=== PATIENT | male | born 1945 | race Caucasian/White ===

== ENCOUNTER → 2021-06-28 | Outpatient (CLI) | payer MEDICARE ==
[2021-06-28 18:29] LABS: Basophils # (A) 0.03 X 10*3/uL (0.00-0.10); Basophils % (A) 0.7 %; Eosinophils % (A) 2.4 %; HCT 34.8 % (39.6-50.0); HGB 11.8 g/dL (13.0-17.0); Immature Grans, Automated 0.2 %; Lymphocytes # (A) 1.07 X 10*3/uL (0.90-5.00); Lymphocytes % (A) 25.3 %; MCH 33.1 pg (27.0-32.0); MCHC 33.9 g/dL (32.0-37.0); MCV 97.5 fL (80.0-97.0); Monocytes # (A) 0.41 X 10*3/uL (0.20-1.00); Monocytes % (A) 9.7 %; NRBC Per 100 WBC 0 /100 WBCS (0.0-0.0); Neutrophils # (A) 2.61 X 10*3/uL (1.80-7.70); Neutrophils % (A) 61.7 %; Platelet Count 177 X 10*3/uL (140-440); RBC 3.57 X 10*6/uL (4.40-5.60); RDW 13.1 % (11.5-14.5); WBC 4.23 X 10*3/uL (4.50-10.00)
[2021-06-28 18:34] LABS: Anion Gap 8.5 mmol/L (10.00-18.00); Carbon Dioxide 24.6 mmol/L (20.0-27.5); Potassium 4.5 mmol/L (3.5-5.5)
== END | disposition home or self-care (01) ==
LOC: LABPAT 13:28
PROVIDERS: ATTEND Orthopaedic Surgery
DX: Z01.812 Encounter for preprocedural laboratory examination (principal); M23.92 Unspecified internal derangement of left knee
CPT/HCPCS: 80051; 85025; 93005

== ENCOUNTER 2021-07-14 09:34 | Day surgery (SDC) | payer BC, MEDICARE ==
[2021-07-13 12:43] VITALS: BMI 28.1
--- NOTE | 2021-07-13 18:23 | HP ---
HISTORY AND PHYSICAL DATE OF SURGERY: 07/14/2021 Nick Grover is a 76-year-old patient seen with progressive left knee pain. We discussed options for treatment. He elected to proceed with left knee arthroscopy. Consent was obtained. PAST MEDICAL HISTORY: Noncontributory. PAST SURGICAL HISTORY: Knee arthroscopy, total hip arthroplasty, laminectomy. DAILY MEDICATIONS: Aleve. ALLERGIES: NONE. SOCIAL HISTORY: He denies tobacco use. PHYSICAL EVALUATION OF THE LEFT KNEE: His range of motion is negative 1 to 115. Mild effusion. Tenderness along the medial and lateral joint lines. Positive medial Jaycob's. Positive lateral Jaycob's. Ligaments stable. Hip rotation without pain. Distal neurovascular exam intact. Left knee radiographs revealed mild osteoarthritis. Left knee MRI revealed a medial meniscal tear, chronic ACL tear and Albert cyst. IMPRESSION: 1. Internal derangement of left knee with medial meniscal tear. 2. Left knee chronic ACL tear. PLAN: Left knee arthroscopy with partial medial meniscectomy and debridement. MMODL / IJN: [id number] /
[~2021-07-14 09:34] MED LIST: DEXAMETHASONE SOD PHOSPHATE 4 MG/ML 1 ML VIAL IV ONE; HYDROmorphone 0.5 MG/0.5 ML SYRINGE IVP PRN; LACTATED RINGERS 1,000 ML IV SCH; LIDOCAINE 1% (10MG/ML) FOR IV START INTRADERMA PRN; ONDANSETRON 4 MG/2 ML VIAL IVP ONE
[2021-07-14] MEDS ORDERED: LIDOCAINE 2% INJ 20 MG/ML (2 ML VIAL) ONE (11:18)
[2021-07-14] MEDS ORDERED: PROPOFOL 10 MG/ML 20 ML VIAL IV ONE (11:18)
[2021-07-14] MEDS ORDERED: fentaNYL (PF) 50 MCG/ML 2 ML AMP ONE (11:18)
[2021-07-14] MEDS ORDERED: MIDAZOLAM 2 MG/2 ML VIAL ONE (11:18)
[2021-07-14] MEDS ORDERED: BUPIVACAINE (PF) 0.25% 30 ML VIAL INTRAARTIC ONE ×2 (11:35→11:50)
--- NOTE | 2021-07-14 12:06 | P.OP ---
Date of Procedure: 07/14/21 Preoperative Diagnosis: Internal derangement left knee Postoperative Diagnosis: 1. Tear medial and lateral meniscus left knee 2. Reactive synovitis medial, lateral and suprapatellar compartments left knee Procedure(s) Performed: 1. Arthroscopic partial medial and lateral meniscectomy left knee 2. Arthroscopic partial synovectomy medial, lateral and suprapatellar compartments left knee Anesthesia: GETA, local Surgeon: Dre Calero Estimated Blood Loss (ml): 7 Pathology: none sent Condition: stable Disposition: PACU Indications for Procedure: 76-year-old patient seen with progressive left knee pain. After having treatment options discussed, he elected to proceed with arthroscopy. Operative Findings: see description of procedure Description of Procedure: Patient was taken to the operative suite. Patient underwent a general anesthetic by the department of anesthesia. Patient was given preoperative antibiotics. The left lower extremity was placed in a well-padded arthroscopic leg hernandes. The left leg was prepped and draped in the normal sterile orthopedic fashion. A lateral parapatellar and suprapatellar incision was made. Trochars were inserted. Arthroscopy was initiated. Suprapatellar pouch r evealed diffuse thick reactive synovitis. The patellofemoral joint appeared to articulate congruently. There was grade 2 chondromalacia of the patella without significant osteochondral tearing. The scope was guided into the medial gutter. No loose bodies or plica were identified. The scope was then guided into the medial compartment. A medial parapatellar incision was made. Trocar inserted followed by probe. There was a complex tear involving the posterior horn of the medial meniscus which did extend into the midbody area. There were grade 2 chondromalacia changes of the medial femoral condyle without significant osteochondral tearing. There was some thick reactive synovitis anteriorly. I performed a partial medial meniscectomy getting down to stable meniscal tissue. I performed a partial synovectomy decompressing the reactive synovitis. The residual meniscus was probed and was found to be stable. There was good decompression of the synovitis. Scope and probe were then guided into the intercondylar notch. The anterior cruciate ligament was absent. The posterior cruciate ligament was intact.. The scope and probe were then guided into lateral compartment. There was a radial tear involving the anterior horn lateral meniscus. There was some thick reactive synovitis anteriorly. I performed a partial lateral meniscectomy getting down to stable meniscal tissue. I performed a partial synovectomy decompressing the reactive synovitis anteriorly. The residual meniscus was stable. There was good decompression of the synovitis. The scope was in guided back into the suprapatellar compartment. I introduced a motorized shaver into the suprapatellar compartment. I debrided some piecemeal fragments of meniscus I encountered. I performed a partial synovectomy. Shaver was now removed. There was good decompression of the synovitis. Instruments were now removed from the joint. The joint was infiltrated with .25% Marcaine. Steri-Strips were applied to the portal sites. Sterile dressings were applied. The patient was placed into a TOMASZ hose. No tourniquet was utilized. The patient was awakened, transferred to a bed and taken to recovery stable satisfactory condition.
[2021-07-14 12:12] VITALS: TEMP 98
[2021-07-14] MEDS ORDERED: HYDROcodone/APAP 5-325MG 1 EACH TAB PO ONE (13:27)
[2021-07-14] MEDS ORDERED: HYDROcodone/APAP 5-325MG 1 EACH TAB ONE (13:28)
[2021-07-14 13:58] VITALS: BP 155/79; PULSE 50; RESP 18
== END 2021-07-14 14:25 | disposition home or self-care (01) ==
LOC: OR 09:34
PROVIDERS: ATTEND Orthopaedic Surgery
DX: S83.282A Other tear of lateral meniscus, current injury, left knee, initial encounter (principal); S83.512A Sprain of anterior cruciate ligament of left knee, initial encounter; M17.12 Unilateral primary osteoarthritis, left knee; M65.862 Other synovitis and tenosynovitis, left lower leg
CPT/HCPCS: 29880; J2250; J1100; J0690; J2405; J3010; J2704; J2001

== ENCOUNTER → 2023-11-22 | Outpatient (CLI) | payer MEDICARE ==
--- NOTE | 2023-11-22 13:32 | MR ---
EXAMINATION TYPE: MR cervical spine wo con DATE OF EXAM: 11/22/2023 COMPARISON: None HISTORY: 78-year-old male L5 4.12, cervical region radiculopathy, Emmett hand numbness TECHNIQUE: Multiplanar, multisequence images of the cervical spine were acquired without contrast. FINDINGS: No craniocervical junction abnormality, predental space widening, prevertebral soft tissue swelling. There is mild multilevel degenerative disc disease with desiccated and mildly bulging disks throughou t. More moderate degenerative disc disease with disc space narrowing at C4-C5. Additional ligamentum flavum thickening in the mid cervical spine. No suspicious bone marrow placement. Alignment is maintained. Scattered moderate to advanced facet and uncovertebral joint arthropathy throughout. The changes result in mild to moderate bile canal narrowing at C3-C4 due to bulging disc and ligament um flavum thickening. There is slight abutment of both dorsal and ventral cord but no cord flattening compression. Moderate narrowing of the spinal canal at C4-C5 and C5-C6 from similar changes with the canal is narr owed down to 6 mm AP at both levels. There is abutment and slight flattening of both the dorsal and v entral cord at these levels. No myelopathic signal change is seen. At C3-C4, hypertrophic facet arthropathy result in moderate right neuroforaminal stenosis. At C4-C5, hypertrophic facet and uncovertebral joint arthropathy contributes to moderate to severe ri ght and mild left neural foraminal stenosis. At C5-C6, hypertrophic facet and uncovertebral joint arthropathy contributes to moderate to severe bi lateral neuroforaminal stenosis, right greater than left. At C6-C7, uncovertebral joint and mild facet arthropathy contributes to mild to moderate left and mil d right neuroforaminal stenosis. No prevertebral or paravertebral soft tissue is seen. IMPRESSION: 1. Mild to moderate degenerative disc disease with superimposed ligamentum flavum thickening in the m id cervical spine along with multilevel hypertrophic facet and uncovertebral joint arthropathy. 2. Changes result in moderate spinal canal stenoses at C4-C5 and C5-C6 with AP canal narrowing down t o 6 mm. There is abutment and slight flattening of both the dorsal and ventral cord at these levels b ut no myelopathic cord signal change. Mild to moderate overall spinal canal narrowing at C3-C4. 3. Variable neuroforaminal stenoses as outlined above. [facility]: [id number], 11/22/2023 1:30 PM
== END | disposition home or self-care (01) ==
LOC: RADMRIMAIN 10:08
PROVIDERS: ATTEND Internal Medicine Rheumatology
DX: M54.12 Radiculopathy, cervical region
CPT/HCPCS: 72141